=== PATIENT | male | born 1940 | race Caucasian/White ===

== ENCOUNTER 2016-09-20 10:11 | Outpatient (RCR) | payer BC ==
[~2016-09-20 10:11] MED LIST: AMIO200T50; AMLO10TA2 PO; AMLO5TAB2; ASP325T; ASP81CT; ASPI-983 PO; DILT120T11 PO; DLT120CCR; ENAL10TA; ENAL20TA PO; FLT05NA16; HYDR-3812 PO; HYDR-3876 PO; HYDR25TA4 PO; HYZAAR; INSU100V6 SQ; LEVO500T2 PO; LEVO75TA58; LEVO88TA54 PO; LEVOTHYROXINE; LOSA1TAB15; METF1000 PO; METF500T4 PO; METH1TAB59 PO; METO50TA7; MTF500T; NF-ALI300T; ONDA4TAB10 PO; PHEN-640 PO; POTA10TA10 PO; TAMS0.4C98 PO; TRIA10.8 NS; VALS320T14 PO; WRF5T
--- OUTSIDE RECORDS SUMMARY | 2016-09-20 10:17 | XMS REPORT | Continuity of Care Document ---
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 If you do not see the information that you expected, contact Release of Information in the Health Information Management department at [phone] for further assistance in locating additional records.[facility] Active Allergies and Adverse Reactions Allergen Noted Date Severity Reactions Comments Ampicillin 02/03/2010 Low ITCHING Levaquin 12/03/2015 Low SEE COMMENTS Muscle weakness and some swelling Pcn 10/23/2014 Medium RASH Current Medications Prescription Sig. Disp. Refills Start End Date Status Date levothyroxine (SYNTHROID) Take 88 mcg by mouth Active 88 mcg tablet daily. valsartan (DIOVAN) 320 mg Take 320 mg by mouth Active tablet daily. Coenzyme Q10 (CO Q-10) 10 Take 1 Cap by mouth Active mg cap daily. LEVOCARNITINE HCL Use 1 Tab as directed Active ([id number] MISC) daily. ARGININE (L-ARGININE) PO Take 1 Tab by mouth Active daily. TURMERIC (BULK) MISC Take 1 Tab by mouth Active daily. zinc sulfate 220 mg (50 Take 220 mg by mouth Active mg elemental zinc) daily. capsule triamcinolone (NASACORT) Apply 1 [place] to each Active 55 mcg nasal inhaler nostril as directed at bedtime as needed. ascorbic acid (VITAMIN-C) Take 500 mg by mouth Active 500 mg tablet daily. aspirin EC 81 mg tablet Take 162 mg by mouth Active every morning. fish oil /omega-3 fatty Take 1 Cap by mouth Active acids (SEA-OMEGA) daily. 340/1000 mg capsule metFORMIN (GLUCOPHAGE) Take 1 Tab by mouth twice 60 Tab 1 10/18/19 Active 1,000 mg tablet daily with meals. 16 fluticasone (FLONASE) 50 Apply 1 [place] to each Active mcg/actuation nasal spray nostril as directed daily as needed. Shake bottle gently before using. vitamins, multiple tablet Take 1 Tab by mouth Active daily. other medication Take 2 Doses by mouth Active daily. Medication Name & Strength: Herbal Superfood Engergizer Dose(how many): 2 capsules Frequency(how often): daily other medication Take 1 Dose by mouth Active daily. insulin glargine (LANTUS Inject 12 Units under the Active SOLOSTAR) 100 unit/mL (3 skin at bedtime daily. mL) injection PEN BERB ORTIZ/HERBAL COMPLEX Take 2 Tabs by mouth Active NO.18 (BERBERINE-HERBAL daily. COMB NO.18 PO) other medication Take by mouth daily. Active Medication Name & Strength: PGX Frequency(how often): daily other medication three times daily. Active Medication Name & Strength: Carb blockers Frequency(how often): before meals ALPHA LIPOIC ACID PO Take 1 Cap by mouth Active daily. other medication Take by mouth daily. Active Medication Name & Strength: Natokinase Frequency(how often): Daily CHROMIC CHLORIDE Take 1 Tab by mouth Active (CHROMIUM CHLORIDE PO) daily. INSULIN DETEMIR (LEVEMIR Inject 15 Units under the Active SC) skin. amLODIPine (NORVASC) 5 mg Take 1 Tab by mouth 90 Tab 3 09/01/19 Active tablet daily. 17 diltiazem CD (CARDIZEM Take 1 Cap by mouth 30 Cap 1 10/18/19 Discontin CD) 120 mg capsule daily. 16 17 ued oxyCODONE (ROXICODONE, Take 1-2 Tabs by mouth 40 Tab 0 07/08/20 Discontin OXY-IR) 5 mg tablet every 4 hours as needed 16 17 ued for Pain Earliest Fill Date: 07/08/16 tamsulosin (FLOMAX) 0.4 Take 1 Cap by mouth daily 90 Cap 0 07/08/20 09/01/19 Discontin mg capsule after breakfast. Do not 16 17 ued crush, chew or open capsules. Take 30 minutes following the same meal each day. senna (SENOKOT) 8.6 mg Take 2 Tabs by mouth 30 Tab 0 07/08/20 Discontin tablet twice daily. 16 17 ued Active Problems Problem Noted Date Incisional hernia 07/08/2016 Left inguinal hernia 07/08/2016 Ventral hernia without obstruction or gangrene 07/05/2016 Inguinal hernia of left side without obstruction or gangrene 07/05/2016 Incisional hernia, without obstruction or gangrene 06/07/2016 Unilateral inguinal hernia without obstruction or gangrene 06/07/2016 Pancreatitis, necrotizing 12/03/2015 Submucosal lesion of stomach 12/03/2015 Paresthesia of both legs 09/29/2015 Pleural effusion 09/29/2015 Obstructive sleep apnea 09/29/2015 Volume overload 09/29/2015 Colitis 09/29/2015 Nausea & vomiting 09/29/2015 Nephrolithiasis 09/29/2015 Hypophosphatemia 09/29/2015 Severe sepsis (HCC) 09/29/2015 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 to or causing fatigue, lack energy, etc.--02/19--pt to taper toprol to off and re-assess clinical status Tests ordered 03/03/2010 Overview: Normal LV function with EF 54% by rest echo and Cardiolite stress thallium. No initial ischemia by Cardiolite stress thallium 08/2007 Severe Sleep apnea, obstructive 03/03/2010 Overview: 01/2012 - continues on CPAP, he has used 99% of the time. Average pressure is 7.5. Plan to reevaluate in one year. (Dr. Artie Hart) FH: CAD (coronary artery disease) 03/03/2010 Hypothyroidism 02/03/2010 Overview: a. 10/2007: Currently on Hyzaar and Cardizem. Discussion for initiation of enalapril possibly per Dr. Andino. b. Vasotec increased to 10 mg b.i.d. for accelerated blood pressure (01/2008). Type II diabetes mellitus ([facility]) 02/03/2010 PAF (paroxysmal atrial fibrillation) ([facility]) 02/03/2010 Overview: Paroxysmal atrial fibrillation (PAFIB) - currently persistent. a. Per patient, dates back to 06/2007 although palpitations longstanding in past. b. 09/07/07: JIMMY-guided cardioversion with ERAF-early recurrent AFIB. Amiodarone initiated and repeat cardioversion with again ERAF within 12 hours. Amiodarone continued IV. Within 24 hours chemical conversion to NSR/sinus bradycardia. Discharged on amiodarone and Cardizem. Per report amiodarone 400mg b.i.d. for two weeks followed by 400mg q.d. c. Transthoracic echo: LA 4.7cm. JIMMY: "dilated LA. TSH 08/21 normal. d. Accelerated hypertension and possible sleep apnea precipitating/exacerbating AFIB. e. 10/16/07: EP consultation. Discussed therapeutic options including focal AFIB ablation. f. Amiodarone titrated to 600 mg a day. Patient converted within 24 hours (10/2007). Remained on 600 mg for 1-2 months and subsequently has been decreasing his own dose to 400-500 mg daily. g. Will decrease to 400 mg, followed by 200 mg over the next 2-4 weeks, monitoring for recurrent events. h. 10/20: Pt.had been having increased and recurrent AFIB and had told Dr. Andino he was considering going to [facility] for an AFIB RFA. Dr. Andino instead referred him to the [facility] i. 01/08/09: EP Consultation--Amiodarone decr. to 200mg M-F only and Toprol decr. to 1/2 tab or to 12.5 mg daily, and enalapril incr. to 20mg daily j. 02/17/09 - occasional skipped beats or palpitations. Patient does not feel he has had recurrent AFIB, continued therapy (but see below SMD). Hypertension 01/27/2010 Restless leg syndrome 12/13/2007 Most Recent Encounters Date Type Specialty Providers Description 09/12/2016 Telephone Cardiology Aline Correia LPN Event Monitor Questions 09/01/2016 Hospital Cardiology Javi More MD Encounter 09/01/2016 Office Visit Cardiology Javi More MD Atrial fibrillation - F/U 08/19/2016 Office Visit General Surgery Lisa Barrios, DO Post- operative state Siomara Hwang APRN-PULL UP HAND (Primary Dx) 07/22/2016 Office Visit General Surgery Lisa Barrios, DO Post- operative state (Primary Dx) 07/05/2016 Surgery Lisa Barrios, DO OPEN INCISIONAL HERNIA REPAIR WITH MESH, MESH REMOVAL 06/28/2016 Office Visit Cardiology Emory Whaley MD Pre-op Clearance - Hernia Repair- Scheduled for 07-05-16 06/24/2016 PAC Office Anesthesiology Lisa Barrios DO Pancreatitis, necrotizing Visit (Primary Dx); Encounter for blood typing; Pre-operative cardiovascular examination; Essential hypertension 06/24/2016 Anesthesia January Allen, GABRIELLE Event Immunizations Name Dates Previously Given Next Due Pneumococcal Vaccine 10/05/2015 (23-[place] Adult) Social History Tobacco Use Types Packs/Day Years Used Date Former Smoker Cigarettes, Cigars, Pipe Comments: quit at 26 yrs of age Alcohol Use Drinks/Week oz/Week Comments Yes Last Filed Vital Signs Vital Sign Reading Time Taken Blood Pressure 154/86 09/01/2016 11:41 AM CUSTOMER SERVICE ASSOCIATE Pulse 60 09/01/2016 11:41 AM CUSTOMER SERVICE ASSOCIATE Temperature 36.6 C (97.9 F) 07/22/2016 1:54 PM CUSTOMER SERVICE ASSOCIATE Respiratory Rate 18 07/22/2016 1:54 PM CUSTOMER SERVICE ASSOCIATE Height 1.753 m (5' 9") 09/01/2016 11:41 AM CUSTOMER SERVICE ASSOCIATE Weight 74.481 kg (164 lb 3.2 oz) 09/01/2016 11:41 AM CUSTOMER SERVICE ASSOCIATE Body Mass Index 24.24 09/01/2016 11:41 AM CUSTOMER SERVICE ASSOCIATE Oxygen Saturation 100% 07/22/2016 1:54 PM CUSTOMER SERVICE ASSOCIATE Plan of Care Date Type Specialty Providers Description 09/23/2016 Appointment General Surgery MertLisa rodríguezDO [address] [place] [address] [phone] (Fax) Health Maintenance Due Date Last Done Comments Physical (Comprehensive) 1947 Exam Pertussis Vaccine 1951 Tetanus Vaccine 1957 Dilated Eye Exam 1958 Foot Exam 1958 Microalbumin 1958 Shingles Vaccine 2000 Hba1c 03/28/2016 09/28/2015, 04/30/2012, 11/24/2011 Additional history exists Influenza Vaccine 04/14/2016 Prevnar/Pneumovax (#2) 10/05/2016 10/05/2015 Procedures from Last 3 Months Procedure Name Priority Date/Time Associated Diagnosis Comments PROCEDURES-SCAN 07/11/2016 Results for this 3:16 PM CUSTOMER SERVICE ASSOCIATE procedure are in the results section. PROCEDURES-SCAN 07/11/2016 Results for this 3:16 PM CUSTOMER SERVICE ASSOCIATE procedure are in the results section. PROCEDURES-SCAN 07/11/2016 Results for this 3:16 PM CUSTOMER SERVICE ASSOCIATE procedure are in the results section. OPEN LEFT INGUINAL HERNIA 07/05/2016 Incisional hernia REPAIR WITH MESH 11:55 AM CUSTOMER SERVICE ASSOCIATE Special Needs 06/07 PER CHANGE FORM, REMOVED "BILATERAL COMPONENT SEPARATION " FROM PROCEDURE - SANDRA BENDER ([id number]) OPEN INCISIONAL HERNIA 07/05/2016 Incisional hernia REPAIR WITH MESH, MESH 11:55 AM CUSTOMER SERVICE ASSOCIATE REMOVAL Special Needs 06/07 PER CHANGE FORM, REMOVED "BILATERAL COMPONENT SEPARATION " FROM PROCEDURE - SANDRA BENDER ([id number]) Results from Last 3 Months MAGNESIUM (09/01/2016 1:20 PM)Only the most recent of 3 results within the time period is included. Component Value Range Magnesium 2.3 1.6-2.6 mg/dL Specimen Blood BASIC METABOLIC PANEL (09/01/2016 1:20 PM)Only the most recent of 5 results within the time period is included. Component Value Range Sodium 138 137-147 MMOL/L Potassium 3.7 3.5-5.1 MMOL/L Chloride 101 98-110 MMOL/L CO2 31 (H) 21-30 MMOL/L Anion Gap 6 3-12 Glucose 185 (H) 70-100 MG/DL Blood Urea Nitrogen 21 7-25 MG/DL Creatinine 0.82 0.4-1.24 MG/DL Calcium 9.7 8.5-10.6 MG/DL eGFR Non >60Comment: >60 mL/min The eGFR is not validated for use in drug dosing adjustments. Continue to use estimated creatinine clearance per dosing reference text. Please contact the Clinical Pharmacist for questions. eGFR >60Comment: >60 mL/min The eGFR is not validated for use in drug dosing adjustments. Continue to use estimated creatinine clearance per dosing reference text. Please contact the Clinical Pharmacist for questions. Specimen Blood PROCEDURES-SCAN (07/11/2016 3:16 PM) Narrative Ordered by an unspecified provider. PROCEDURES-SCAN (07/11/2016 3:16 PM) Narrative Ordered by an unspecified provider. PROCEDURES-SCAN (07/11/2016 3:16 PM) Narrative Ordered by an unspecified provider. POC GLUCOSE (07/08/2016 12:09 PM)Only the most recent of 16 results within the time period is included. Component Value Range Glucose, POC 356 (H) 70-100 MG/DL PHOSPHORUS (07/07/2016 5:26 AM)Only the most recent of 2 results within the time period is included. Component Value Range Phosphorus 2.8 2.0-4.0 MG/DL Specimen Blood CBC (07/07/2016 5:26 AM)Only the most recent of 3 results within the time period is included. Component Value Range White Blood Cells 6.3 4.5-11.0 K/UL RBC 2.96 (L) 4.4-5.5 M/UL Hemoglobin 8.4 (L) 13.5-16.5 GM/DL Hematocrit 25.5 (L) 40-50 % MCV 85.9 80-100 FL MCH 28.3 26-34 PG MCHC 32.9 32.0-36.0 G/DL RDW 14.7 11-15 % Platelet Count 217 150-400 K/UL MPV 8.1 7-11 FL Specimen Blood SURGICAL PATHOLOGY (07/05/2016 8:11 AM) Component Value Range PATHOLOGY REPORT [facility] [email or web address] Pauline Cantor MD, PhD, Director of Anatomic Pathology Department of Pathology and Laboratory Medicine [address] [place] [id number] Surgical Pathology Office: [phone] SURGICAL PATHOLOGY REPORT NAME: MARTHA HARTLEY SURG PATH #: [id number] MR #: [id number] SPECIMEN CLASS: SR BILLING #: [id number] ALT ID #: LOCATION: DISCHARGED DATE OF PROCEDURE: 07/05/2016 AGE: 76 SEX: M DATE RECEIVED: 07/06/2016 : 1940 TIME RECEIVED: 08:11 PHYSICIAN: LISA BARRIOS DATE OF REPORT: 07/11/2016 COPY TO: DATE OF PRINTIN07/11/2016 ################################################## ###################### Final Diagnosis: A. Fibroadipose tissue, "cord lipoma", excision: Lipoma with granulomatous inflammation Attestation: By this signature, I attest that I have personally formulated the final interpretation expressed in this report and that the above diagnosis is based upon my examination of the slides and/or other material indicated in this report. +++Electronically Signed Out By+++ berna/07/06/2016 Interpreted by: David Paez MD, Attending Physician 07/11/2016 ################################################## ###################### Material Received: A: cord lipoma History: 76-year-old male with a clinical history of incisional hernia, left inguinal hernia. Gross Description: A. Received in formalin, labeled with the patient's name and "cord lipoma" is an 8.0 x 2.0 x 1.0 cm portion of yellow adipose tissue that is covered in part by pale-hughes membranous tissue. The specimen is serially sectioned to reveal a yellow, grossly unremarkable cut surface. Compliance Representative sections are submitted in cassette A1-A2. (nilson) nilson/07/06/2016 TYPE & SCREEN (NOT CROSSMATCH ELIGIBLE) (06/24/2016 3:01 PM) Component Value Range ABO/RH(D) A NEG Antibody Screen NEG Blood Component Type RED CELL GROUP Specimen Blood, venous - Blood
== END 2016-12-19 | disposition home or self-care (01) ==
LOC: CARD 10:11
PROVIDERS: ATTEND Internal Medicine Cardiovascular Disease
DX: I49.3 Ventricular premature depolarization (principal); I48.0 Paroxysmal atrial fibrillation; R00.2 Palpitations
CPT/HCPCS: 93225; 93226

== ENCOUNTER → 2016-12-28 | Outpatient (CLI) | payer MEDICARE, OTHER ==
[~2016-12-28] MED LIST changes: +CATHETER FLUSH 10 ML SYR IV PRN; +REGADENOSON 0.4 MG/5 ML SYR (LEXISCAN) IV ONE
[2016-12-28 12:54] VITALS: BP 143/81
[2016-12-28 13:06] VITALS: BP 134/72
[2016-12-28 13:08] VITALS: BP 135/72
--- NOTE | 2016-12-30 07:51 | STRESS TEST ---
DATE OF SERVICE: LEXISCAN MYOVIEW STRESS TEST REPORT REFERRING PHYSICIANS: Talat Ortiz M.D., and Javi More M.D. Baseline heart rate is 57, baseline blood pressure 143/81, baseline EKG is sinus rhythm with frequent atrial premature contractions. In summary, the patient was injected with 10.47 mCi of technetium-99 Myoview and the resting images were obtained. Then, the patient received 0.4 mg of Lexiscan followed by 30.1 mCi of technetium-99 Myoview. Throughout the test, there were no EKG changes. The resting and stress images were reviewed and compared in the short axis, horizontal long axis, and vertical long axis views. Review of the images showed diaphragmatic attenuation, affecting the quality of the images. There is mild decreased uptake in the mid to apical inferior wall with subtle reversibility. SSS is 3. SDS 1. TID value 1.11. On the gated images, the left ventricle appeared to be in normal size with normal contractility. Calculated ejection fraction 63%. CONCLUSION: 1. The patient tolerated Lexiscan well. 2. Diaphragmatic attenuation with typical male pattern. No significant ischemia was noted. 3. Normal left ventricular size with normal contractility. Calculated ejection fraction 63%. Job ID: [id number] DocumentID: [id number] Dictated Date: 12/28/2016 15:37:25 Data Processing Mechanic Date: 12/29/2016 07:25:53 Dictated By: IRIS ALFRED MD
== END ==
LOC: CARD 11:11
PROVIDERS: ATTEND Physician Assistant
DX: I10 Essential (primary) hypertension (principal); E78.2 Mixed hyperlipidemia; I48.0 Paroxysmal atrial fibrillation; G47.33 Obstructive sleep apnea (adult) (pediatric)
CPT/HCPCS: 78452; 93017

== ENCOUNTER → 2017-02-02 | Outpatient (CLI) | payer MEDICARE, OTHER ==
[~2017-02-02] MED LIST changes: +IOHEXOL 350 MG/ML 100 ML (OMNIPAQUE 350) VIAL IV ONE; +NS 100 ML (IVPB) BAG IV ONE; -REGADENOSON 0.4 MG/5 ML SYR (LEXISCAN) IV ONE
== END ==
DX: K85.91 Acute pancreatitis with uninfected necrosis, unspecified (principal); K59.00 Constipation, unspecified; I31.3 Pericardial effusion (noninflammatory)

== ENCOUNTER → 2017-03-27 | Outpatient (CLI) | payer MEDICARE, OTHER ==
[~2017-03-27] MED LIST changes: -CATHETER FLUSH 10 ML SYR IV PRN; -IOHEXOL 350 MG/ML 100 ML (OMNIPAQUE 350) VIAL IV ONE; -NS 100 ML (IVPB) BAG IV ONE
--- NOTE | 2017-03-27 12:34 | Diagnostic Imaging Report ---
PROCEDURE: MRI lumbar spine. TECHNIQUE: Multiplanar, multisequence MRI of the lumbar spine was performed without contrast. INDICATION: Back pain. 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 The degenerative changes do not seem as pronounced as on the prior exam. There is a disc bulge centrally which flattens the ventral aspect of the thecal sac and narrows the AP diameter to approximately 8.0 mm. On the prior exam, the AP diameter of the thecal sac was narrowed to approximately 4.5 mm. There is still narrowing of the neural foramen bilaterally at this level, particularly on the right. The lateral disc protrusion to the left at L4-5 seen previously is again evident and does not appear to have changed significantly. The disc compresses the left ventral aspect of the thecal sac and narrows the AP diameter of the thecal sac to approximately 7.8 mm. On the prior exam, the AP diameter of the thecal sac was narrowed to 7.4 mm. There is also mild narrowing the neural foramen on the right at this level. This finding is essentially no different. The prior study also revealed a lateral disc protrusion to the right at L5-S1. That finding is again evident and does not appear to have changed adversely. There is no significant narrowing of the neural foramen on the left at this level and there is no evidence for central stenosis at L5-S1. The remainder of the lumbar spine is stable as well. No new area of spinal stenosis or nerve root encroachment has developed. There is no abnormal signal arising from the cord or the vertebral bodies to indicate an acute abnormality. There is no sign of a paraspinal mass. IMPRESSION: 1. 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 There is still narrowing of the neural foramen bilaterally at this level. 2. The lateral disc protrusion to the left at L4-5 and to the right at L5-S1 do not appear to have changed significantly. 3. There is no new area of spinal stenosis or nerve root encroachment identified. 4. There is no sign of an acute bony abnormality or for a cord lesion. Dictated by: Dictated on workstation # [id number]
== END ==
LOC: RAD 10:19
PROVIDERS: ATTEND Anesthesiology Pain Medicine
DX: M51.26 Other intervertebral disc displacement, lumbar region (principal)
CPT/HCPCS: 72148

== ENCOUNTER → 2017-05-22 | Outpatient (CLI) | payer MEDICARE, OTHER ==
[~2017-05-22] MED LIST changes: +IOHEXOL 350 MG/ML 100 ML (OMNIPAQUE 350) VIAL IV ONE; +NS 100 ML (IVPB) BAG IV ONE
[2017-05-22 09:35] LABS: BLOOD UREA NITROGEN 27 MG/DL (7-18); BUN/CREATININE RATIO 31; CREATININE SERUM 0.88 MG/DL (0.60-1.30); GFR ESTIMATED > 60
--- NOTE | 2017-05-22 12:39 | Diagnostic Imaging Report ---
PROCEDURE: CT abdomen with and without contrast. TECHNIQUE: Multiple contiguous axial CT images of the abdomen were obtained prior to and after intravenous administration of iodinated contrast. INDICATION: Necrotizing pancreatitis followup. 100 mL of Omnipaque 350 is administered intravenously. FINDINGS: There is an 11.2 x 5.6 x 9.0 cm walled-off necrosis seen around the pancreas. The overall measurements are not significantly changed when compared to 02/02/2017. There is no internal air density or air-fluid level to suggest an abscess formation. There is abnormal morphology of the pancreatic parenchyma likely related to prior necrosis of most of the pancreatic head and significant portions of the pancreatic body and tail. There is minimal fatty stranding seen around the pancreas and in the small bowel mesentery. This is similar to 02/02/2017 exam with no definite active inflammation. There is no free peritoneal fluid seen. No pneumoperitoneum. The visualized portions of the lung bases appear unremarkable. The liver, the spleen, and the adrenal glands appear unremarkable. Cholecystectomy clips are seen. There is also suggestion of a suture material or calcification along the walled-off necrosis in the peripancreatic area anterior to the location of the pancreatic head. The kidneys have symmetric enhancement and contrast excretion. The abdominal aorta is normal in caliber. Atherosclerotic calcifications are seen. There is mild ectasia of the common iliac arteries bilaterally. There is evidence of prior ventral hernia repair with a mesh. No evidence of hernia recurrence. The osseous structures appear to demonstrate lower lumbar spine facet and disc degenerative changes. 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 Dictated by: Dictated on workstation # [id number]
== END ==
LOC: RAD 08:56
PROVIDERS: ATTEND Nurse Practitioner Adult Health
DX: K85.91 Acute pancreatitis with uninfected necrosis, unspecified (principal)
CPT/HCPCS: 36415; 74170; 82565; 84520

== ENCOUNTER 2018-04-20 15:03 | Outpatient (CLI) | payer MEDICARE, OTHER ==
[~2018-04-20] VITALS: Ht 175.3 cm; Wt 81.6 kg
[~2018-04-20 15:03] MED LIST changes: +ACHD5005 PO; -AMLO10TA2 PO; +AMLO10TA6 PO; -HYDR-3812 PO; -IOHEXOL 350 MG/ML 100 ML (OMNIPAQUE 350) VIAL IV ONE; +METF-397 PO; +METF-399 PO; -METF1000 PO; -METF500T4 PO; -NS 100 ML (IVPB) BAG IV ONE; -VALS320T14 PO; +VALS320T15 PO
[2018-04-20] MEDS ORDERED: INSU100I14 SQ (15:08)
[2018-04-20] MEDS ORDERED: LOSA100T8 PO (15:08)
[2018-04-20] MEDS ORDERED: ASPI-586 PO (15:08)
[2018-04-20] MEDS ORDERED: AMLO5TAB7 PO (15:08)
== END 2018-04-20 15:09 | disposition home or self-care (01) ==
LOC: PREOP 15:03
PROVIDERS: ATTEND Surgery
DX: Z01.818 Encounter for other preprocedural examination (principal)

== ENCOUNTER 2018-04-24 11:31 | Day surgery (SDC) | payer MEDICARE, OTHER ==
[~2018-04-24] VITALS: Ht 175.3 cm; Wt 81.6 kg
[~2018-04-24 11:31] MED LIST changes: +AMLO5TAB7 PO; +ASPI-586 PO; +INSU100I14 SQ; +LOSA100T8 PO
[2018-04-24 11:35] VITALS: BP 170/78
[2018-04-24] MEDS ORDERED: LACTATED RINGERS 1,000 ML IV STA (11:38)
--- OUTSIDE RECORDS SUMMARY | 2018-04-24 11:45 | XMS REPORT | Clinical Summary ---
Author Author [facility] Organization [facility] Address Unknown Phone Unavailable Care Team Providers Care Account Services Coordinator Name Role Phone Javi More MD Unavailable Claudia Shaikh RN Unavailable Unavailable Bety Lee MD Unavailable Talat Ortiz MD PCP Joaquin Mitchell DO Unavailable Artie Nettles MD Unavailable Unavailable Thompson Sher MD Unavailable Otilia Boateng RN Unavailable Unavailable Talat Becker MD Unavailable Melissa Elias Unavailable Unavailable Tracy Mckenzie CRNA Unavailable Ted Fox MD Unavailable Gabbie Bruno APRN Unavailable Michael Preciado MD Unavailable Source Comments Some departments are not documenting in the electronic medical record. If you do not see the information that you expected, contact Release of Information in the Health Information Management department at [phone] for further assistance in locating additional records.[facility] Allergies Active Allergy Reactions Severity Noted Date Comments Ampicillin ITCHING Low 02/03/2010 Levofloxacin SEE COMMENTS Low 12/03/2015 Muscle weakness and some swelling Penicillins RASH Medium 10/23/2014 Current Medications Prescription Sig. Disp. Refills Start End Date Status Date levothyroxine (SYNTHROID) Take 88 mcg by mouth Active 88 mcg tablet daily. valsartan (DIOVAN) 320 mg Take 320 mg by mouth Active tablet daily. zinc sulfate 220 mg (50 Take 220 mg by mouth Active mg elemental zinc) daily. capsuleIndications: PAF (paroxysmal atrial fibrillation) (HCC), Essential hypertension, Sinus node arrhythmia ascorbic acid (VITAMIN-C) Take 500 mg by [...] meals. 16 fluticasone (FLONASE) 50 Apply 1 [place] to each Active mcg/actuation nasal spray nostril as directed daily as needed. Shake bottle gently before using. vitamins, multiple tablet Take 1 Tab by mouth Active daily. other medication Take 1 Dose by mouth Active daily. insulin glargine (LANTUS Inject 12-13 Units under Active SOLOSTAR) 100 unit/mL (3 the skin at bedtime mL) injection PEN daily. BERB ORTIZ/HERBAL COMPLEX Take 1 tablet by mouth Active NO.18 (BERBERINE-HERBAL three times daily before COMB NO.18 PO) meals. other medication Take by mouth daily. Active Medication Name & Strength: PGX Frequency(how often): daily ALPHA LIPOIC ACID PO Take 1 Cap by mouth Active daily. insulin aspart (NOVOLOG Inject 5-6 Units under Active FLEXPEN) 100 unit/mL the skin three times injection PEN daily with meals. coenzyme Q10(+) 100 mg Take 100 mg by mouth Active cap daily. turmeric root extract 500 Take 500 mg by mouth Active mg cap daily. CREON 36,000-114,000- Take 1 capsule by mouth 06/05/20 Active 180,000 unit capsule three times daily with 17 meals. And snacks amLODIPine (NORVASC) 5 mg TAKE 1 TABLET BY MOUTH 90 tablet 3 12/16/19 Active tablet DAILY. 18 Active Problems Problem Noted Date Right inguinal hernia 07/28/2017 Overview: Added automatically from request for surgery [id number] Incisional hernia 07/08/2016 Left inguinal hernia 07/08/2016 [...] 09/28/2015 Abdominal bruit 01/14/2011 Sinus node arrhythmia 03/03/2010 Overview: mid 40s-50's--possibly contr. to or [...] blood pressure (01/2008). Type II diabetes mellitus ([facility]) 02/03/2010 PAF (paroxysmal atrial fibrillation) ([facility]) 02/03/2010 Overview: Paroxysmal atrial fibrillation [...] Dr. Andino he was considering going to [facility] for an AFIB RFA. Dr. Andino instead referred him to the [facility] i. 01/08/09: EP Consultation--Amiodarone decr. to 200mg M-F only and Toprol decr. to 1/2 tab or to 12.5 mg daily, and enalapril incr. to 20mg daily j. 02/17/09 - occasional skipped beats or palpitations. Patient does not feel he has had recurrent AFIB, continued therapy (but see below SMD). Hypertension 01/27/2010 Restless leg syndrome 12/13/2007 Immunizations Name Dates Previously Given Next Due Pneumococcal Vaccine 10/05/2015 (23-[place] Adult) Social History Tobacco Use Types Packs/Day Years Used Date Former Smoker Cigarettes 0.25 4 Smokeless Tobacco: Never Used Comments: quit at 26 yrs of age Alcohol Use Drinks/Week oz/Week Comments Yes 1 Glasses of 0.6 wine Sex Assigned at Date Recorded Not on file Last Filed Vital Signs Vital Sign Reading Time Taken Blood Pressure 150/70 11/03/2017 3:46 PM CDT Pulse 72 11/03/2017 3:46 PM CDT Temperature 37.2 C (99 F) 08/22/2017 2:00 PM EMERGENCY DEPARTMENT MANAGER Respiratory Rate 16 09/29/2017 3:16 PM EMERGENCY DEPARTMENT MANAGER Oxygen Saturation 100% 08/22/2017 2:00 PM EMERGENCY DEPARTMENT MANAGER Inhaled Oxygen - - Concentration Weight 80.3 kg (177 lb) 11/03/2017 3:46 PM CDT Height 175.3 cm (5' 9") 11/03/2017 3:46 PM CDT Body Mass Index 26.14 11/03/2017 3:46 PM CDT Plan of Treatment Health Maintenance Due Date Last Done Comments PHYSICAL (COMPREHENSIVE) 1947 EXAM PERTUSSIS VACCINE 1951 TETANUS VACCINE 1957 DILATED EYE EXAM 1958 FOOT EXAM 1958 SHINGLES RECOMBINANT 1990 VACCINE (1 of 2) HBA1C 03/28/2016 09/28/2015, 04/30/2012, 11/24/2011, Additional history exists PNEUMONIA (PCV13/PPSV23) 10/05/2016 10/05/2015 VACCINES (2 of 2 - PCV13) INFLUENZA VACCINE 05/14/2018 05/25/2006, 07/28/2005 Implants Implanted Type 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 Cable Splicing Technician Device Expiration Model / Identifier Date Serial / Lot Titanium Plates Apr In Clp Med Lg 10mm Pstl COVIDIEN: [id number] / Implanted: Qty: 1 on 10/11/2015 by SURGICAL NA / Artie Nettles MD DEVICES [id number] M[employer] Parietex 6cm Inguinal Left: COVIDIEN: 10/11/2020 [id number] / Plug Groin SURGICAL [id number] / Implanted: Qty: 1 on 07/05/2016 by DEVICES [id number] Louie Noland, DO Patch Surgical Self Expand Flexible Left: [employer] 03/14/2017 PVPM / Laminate Large Pore Groin PVPM / Implanted: Qty: 1 on 07/05/2016 by [id number] Louie Noland, DO [employer] 1.7x1.7in Self N/A: [employer] 01/11/2018 PVPS / Expanding Partially Absorbable Umbilical PVPS / Implanted: Qty: 1 on 07/05/2016 by [id number] Louie Noland, DO [employer] 1.7x1.7in Self Right: [employer] 04/13/2019 PVPS / Expanding Partially Absorbable - Abdomen N/A / Sn/A [id number] Implanted: Qty: 1 on 08/22/2017 by Louie Noland, DO [employer] Parietex 6cm Inguinal Right: COVIDIEN: 12/11/2021 [id number] / Plug - Sn/A Abdomen SURGICAL N/A / Implanted: Qty: 1 on 08/22/2017 by DEVICES [id number] Louie Noland, DO Results Not on filefrom Last 3 Months
--- OUTSIDE RECORDS SUMMARY | 2018-04-24 11:48 | XMS REPORT | Continuity of Care Document ---
Author Author [facility] Organization [facility] Address Unknown Phone Unavailable Allergies Active Description Code Type Severity Reaction Onset Reported/Identified Relationship to Patient Clinical Status Yes ampicillin [id number] Drug Allergy Unknown N/A 11/23/2015 Medications There is no data. Problems Date Dx Coded Attending Type Code Diagnosis Diagnosed By 01/27/2010 Ot 427.31 01/27/2010 Ot 427.81 01/27/2010 Ot 785.1 07/17/2014 PUSHPA RAMOS MD Ot 721.0 07/17/2014 PUSHPA RAMOS MD Ot 724.02 07/17/2014 PUSHPA RAMOS MD Ot 724.4 07/17/2014 IRIS ALFRED MD Ot 272.4 07/17/2014 IRIS ALFRED MD Ot 397.0 07/17/2014 IRIS ALFRED MD Ot 401.9 07/17/2014 IRIS ALFRED MD Ot 424.0 07/17/2014 IRIS ALFRED MD Ot 427.31 07/17/2014 IRIS ALFRED MD Ot 785.1 07/17/2014 PUSHPA RAMOS MD Ot 723.0 01/15/2015 Ot 427.31 01/15/2015 Ot 427.81 01/15/2015 Ot 785.1 01/15/2015 Ot 562.10 01/15/2015 Ot V76.51 01/15/2015 Ot 715.36 01/15/2015 Ot 959.7 01/15/2015 Ot E000.8 01/15/2015 Ot E009.9 01/15/2015 Ot E849.0 01/15/2015 PUSHPA RAMOS MD Ot 721.0 01/15/2015 PUSHPA RAMOS MD Ot 724.02 01/15/2015 PUSHPA RAMOS MD Ot 724.4 01/15/2015 IRIS ALFRED MD Ot 272.4 01/15/2015 IRIS ALFRED MD Ot 397.0 01/15/2015 TIMA WOOD, IRIS [place] Ot 401.9 01/15/2015 IRIS ALFRED MD Ot 424.0 01/15/2015 IRIS ALFRED MD Ot 427.31 01/15/2015 IRIS ALFRED MD Ot 785.1 01/15/2015 PUSHPA RAMOS MD Ot 723.0 01/15/2015 Ot 427.31 01/15/2015 Ot 427.81 01/15/2015 Ot 785.1 01/15/2015 Ot 562.10 01/15/2015 Ot V76.51 01/15/2015 Ot 715.36 01/15/2015 Ot 959.7 01/15/2015 Ot E000.8 01/15/2015 Ot E009.9 01/15/2015 Ot E849.0 01/15/2015 PUSHPA RAMOS MD Ot 721.0 01/15/2015 PUSHPA RAMOS MD Ot 724.02 01/15/2015 PUSHPA RAMOS MD Ot 724.4 01/15/2015 IRIS ALFRED MD Ot 272.4 01/15/2015 IRIS ALFRED MD Ot 397.0 01/15/2015 IRIS ALFRED MD Ot 401.9 01/15/2015 IRIS ALFRED MD Ot 424.0 01/15/2015 IRIS ALFRED MD Ot 427.31 01/15/2015 IRIS ALFRED MD Ot 785.1 01/15/2015 PUSHPA RAMOS MD Ot 723.0 01/30/2015 LOIS SPRINGER MD Ot 722.4 01/30/2015 LOIS SPRINGER MD Ot V67.09 06/10/2015 Ot 427.31 06/10/2015 Ot 427.81 06/10/2015 Ot 785.1 06/10/2015 Ot 562.10 06/10/2015 Ot V76.51 06/10/2015 Ot 715.36 06/10/2015 Ot 959.7 06/10/2015 Ot E000.8 06/10/2015 Ot E009.9 06/10/2015 Ot E849.0 06/10/2015 PUSHPA RAMOS MD Ot 721.0 06/10/2015 RICHARD WOOD, PUSHPA [place] Ot 724.02 06/10/2015 PUSHPA RAMOS MD Ot 724.4 06/10/2015 IRIS ALFRED MD Ot 272.4 06/10/2015 IRIS ALFRED MD Ot 397.0 06/10/2015 IRIS ALFRED MD Ot 401.9 06/10/2015 IRIS ALFRED MD Ot 424.0 06/10/2015 IRIS ALFRED MD Ot 427.31 06/10/2015 IRIS ALFRED MD Ot 785.1 06/10/2015 RICHARD WOOD, PUSHPA [place] Ot 723.0 06/10/2015 LOIS SPRINGER MD Ot 722.4 06/10/2015 LOIS SPRINGER MD Ot V67.09 08/28/2015 LOIS SPRINGER MD Ot 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, UNSPECIFIED 09/22/2015 Ot 562.10 09/22/2015 Ot V76.51 09/22/2015 Ot 715.36 09/22/2015 Ot 959.7 09/22/2015 Ot E000.8 09/22/2015 Ot E009.9 09/22/2015 Ot E849.0 09/22/2015 PUSHPA RAMOS MD Ot 721.0 09/22/2015 PUSHPA RAMOS MD Ot 724.02 09/22/2015 PUSHPA RAMOS MD Ot 724.4 09/22/2015 IRIS ALFRED MD Ot 272.4 09/22/2015 IRIS ALFRED MD Ot 397.0 09/22/2015 IRIS ALFRED MD Ot 401.9 09/22/2015 IRIS ALFRED MD Ot 424.0 09/22/2015 IRIS ALFRED MD Ot 427.31 09/22/2015 IRIS ALFRED MD Ot 785.1 09/22/2015 PSUHPA RAMOS MD Ot 723.0 09/22/2015 LOIS SPRINGER MD Ot 722.4 09/22/2015 LOIS SPRINGER MD Ot V67.09 09/24/2015 АЛЕКСАНДР REINOSO MD Ot E03.9 09/24/2015 АЛЕКСАНДР REINOSO MD Ot E11.9 09/24/2015 ARLETH WOOD, АЛЕКСАНДР Bloom Ot E78.5 09/24/2015 ARLETH WOOD, АЛЕКСАНДР Bloom Ot E86.0 09/24/2015 ARLETH WOOD, АЛЕКСАНДР Bloom Ot E87.5 09/24/2015 ARLETH WOOD, АЛЕКСАНДР Bloom Ot G47.33 09/24/2015 ARLETH WOOD, АЛЕКСАНДР Bloom Ot I10 09/24/2015 ARLETH WOOD, АЛЕКСАНДР Bloom Ot I48.0 09/24/2015 ARLETH WOOD, АЛЕКСАНДР Bloom Ot J44.9 09/24/2015 ARLETH WOOD, АЛЕКСАНДР Bloom Ot K52.9 09/24/2015 ARLETH WOOD, АЛЕКСАНДР Bloom Ot K85.9 09/24/2015 ARLETH WOOD, АЛЕКСАНДР Bloom Ot N17.9 09/24/2015 ARLETH WOOD, АЛЕКСАНДР Bloom Ot N20.0 09/24/2015 ARLETH WOOD, АЛЕКСАНДР Bloom Ot N40.0 09/24/2015 ARLETH WOOD, АЛЕКСАНДР Bloom Ot N52.9 09/24/2015 ARLETH WOOD, АЛЕКСАНДР Bloom Ot Z88.1 09/28/2015 ARLETH WOOD, АЛЕКСАНДР Bloom Ot E03.9 09/28/2015 ARLETH WOOD, АЛЕКСАНДР Bloom Ot E11.9 09/28/2015 ARLETH WOOD, АЛЕКСАНДР Bloom Ot E78.5 09/28/2015 ARLETH WOOD, АЛЕКСАНДР Bloom Ot E86.0 09/28/2015 ARLETH WOOD, АЛЕКСАНДР Bloom Ot E87.5 09/28/2015 ARLETH WOOD, АЛЕКСАНДР Bloom Ot G47.33 09/28/2015 ARLETH WOOD, АЛЕКСАНДР Bloom Ot I10 09/28/2015 ARLETH WOOD, АЛЕКСАНДР Bloom Ot I48.0 09/28/2015 ARLETH WOOD, АЛЕКСАНДР Bloom Ot J44.9 09/28/2015 ARLETH WOOD, АЛЕКСАНДР Bloom Ot K52.9 09/28/2015 ARLETH WOOD, АЛЕКСАНДР Bloom Ot K85.9 09/28/2015 ARLETH WOOD, АЛЕКСАНДР Bloom Ot N17.9 09/28/2015 ARLETH WOOD, АЛЕКСАНДР Bloom Ot N20.0 09/28/2015 ARLETH WOOD, АЛЕКСАНДР Bloom Ot N40.0 09/28/2015 ARLETH WOOD, АЛЕКСАНДР Bloom Ot N52.9 09/28/2015 ARLETH WOOD, АЛЕКСАНДР Bloom Ot Z88.1 09/28/2015 ARLETH WOOD, АЛЕКСАНДР Bloom Ot E03.9 09/28/2015 ARLETH WOOD, АЛЕКСАНДР Bloom Ot E11.9 09/28/2015 ARLETH WOOD, АЛЕКСАНДР Bloom Ot E78.5 09/28/2015 ARLETH WOOD, АЛЕКСАНДР Bloom Ot E86.0 09/28/2015 АЛЕКСАНДР REINOSO MD Ot E87.5 09/28/2015 АЛЕКСАНДР REINOSO MD Ot G47.33 09/28/2015 АЛЕКСАНДР REINOSO MD Ot I10 09/28/2015 ARLETH WOOD, АЛЕКСАНДР Bloom Ot I48.0 09/28/2015 АЛЕКСАНДР REINOSO MD Ot J44.9 09/28/2015 АЛЕКСАНДР REINOSO MD Ot K52.9 09/28/2015 АЛЕКСАНДР REINOSO MD Ot K85.9 09/28/2015 АЛЕКСАНДР REINOSO MD Ot N17.9 09/28/2015 АЛЕКСАНДР REINOSO MD Ot N20.0 09/28/2015 АЛЕКСАДНР REINOSO MD Ot N40.0 09/28/2015 АЛЕКСАНДР REINOSO MD Ot N52.9 09/28/2015 АЛЕКСАНДР REINOSO MD Ot Z88.1 09/28/2015 АЛЕКСАНДР REINOSO MD Ot E03.9 HYPOTHYROIDISM, UNSPECIFIED 09/28/2015 АЛЕКСАНДР REINOSO MD Ot E11.9 TYPE 2 DIABETES MELLITUS WITHOUT COMPLIC 09/28/2015 АЛЕКСАНДР REINOSO MD Ot E78.5 HYPERLIPIDEMIA, UNSPECIFIED 09/28/2015 АЛЕКСАНДР REINOSO MD Ot E86.0 DEHYDRATION 09/28/2015 АЛЕКСАНДР REINOSO MD Ot E87.5 HYPERKALEMIA 09/28/2015 АЛЕКСАНДР REINOSO MD Ot E87.6 HYPOKALEMIA 09/28/2015 АЛЕКСАНДР REINOSO MD Ot G47.33 OBSTRUCTIVE SLEEP APNEA (ADULT) (PEDIATR 09/28/2015 АЛЕКСАНДР REINOSO MD Ot I10 ESSENTIAL (PRIMARY) HYPERTENSION 09/28/2015 АЛЕКСАНДР REINOSO MD, Ot I48.0 PAROXYSMAL ATRIAL FIBRILLATION 09/28/2015 АЛЕКСАНДР REINOSO MD, Ot J44.9 CHRONIC OBSTRUCTIVE PULMONARY DISEASE, U 09/28/2015 АЛЕКСАНДР REINOSO MD, Ot K52.9 NONINFECTIVE GASTROENTERITIS AND COLITIS 09/28/2015 АЛЕКСАНДР REINOSO MD Ot K85.8 OTHER ACUTE PANCREATITIS 09/28/2015 АЛЕКСАНДР REINOSO MD Ot K85.9 09/28/2015 АЛЕКСАНДР REINOSO MD Ot N17.9 ACUTE KIDNEY FAILURE, UNSPECIFIED 09/28/2015 АЛЕКСАНДР REINOSO MD Ot N20.0 CALCULUS OF KIDNEY 09/28/2015 ЛАЕКСАНДР REINOSO MD Ot N39.0 URINARY TRACT INFECTION, SITE NOT SPECIF 09/28/2015 ARLETH MD, АЛЕКСАНДР D Ot N40.0 ENLARGED PROSTATE WITHOUT LOWER URINARY 09/28/2015 АЛЕКСАНДР REINOSO MD Ot N42.0 CALCULUS OF PROSTATE 09/28/2015 АЛЕКСАНДР REINOSO MD Ot 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, UNSPECIFIED 09/28/2015 АЛЕКСАНДР REINOSO MD Ot R54 AGE-RELATED PHYSICAL DEBILITY 09/28/2015 АЛЕКСАНДР REINOSO MD Ot Z87.891 PERSONAL HISTORY OF NICOTINE DEPENDENCE 09/28/2015 АЛЕКСАНДР REINOSO MD Ot Z88.1 ALLERGY STATUS TO OTHER ANTIBIOTIC AGENT 11/23/2015 EMRE WOOD, YOSELIN Carey Ot N20.0 CALCULUS OF KIDNEY 11/23/2015 EMRE WOOD, YOSELIN Carey Ot N42.0 CALCULUS OF PROSTATE 11/23/2015 EMRE WOOD, YOSELIN Carey Ot Z01.818 ENCOUNTER FOR OTHER PREPROCEDURAL EXAMIN 11/24/2015 YOSELIN ANDREA MD Ot N20.0 CALCULUS OF KIDNEY 11/24/2015 EMRE WOOD, YOSELIN Carey Ot N42.0 CALCULUS OF PROSTATE 11/24/2015 YOSELIN ANDREA MD Ot Z79.899 OTHER INTERMEDIATE (CURRENT) DRUG THERAPY 12/09/2015 YOSELIN ANDREA MD Ot N20.0 CALCULUS OF KIDNEY 12/16/2015 UZMA RICO APRN Ot K85.9 ACUTE PANCREATITIS, UNSPECIFIED 02/14/2016 CHASE BAUM Ot K85.9 ACUTE PANCREATITIS, UNSPECIFIED 03/14/2016 АЛЕКСАНДР REINOSO MD Ot K42.9 UMBILICAL HERNIA WITHOUT OBSTRUCTION OR 03/14/2016 АЛЕКСАНДР REINOSO MD Ot K85.9 ACUTE PANCREATITIS, UNSPECIFIED 03/14/2016 АЛЕКСАНДР REINOSO MD Ot N32.3 DIVERTICULUM OF BLADDER 09/14/2016 АЛЕКСАНДР REINOSO MD Ot K42.9 UMBILICAL HERNIA WITHOUT OBSTRUCTION OR 09/14/2016 АЛЕКСАНДР REINOSO MD Ot K85.9 ACUTE PANCREATITIS, UNSPECIFIED 09/14/2016 АЛЕКСАНДР REINOSO MD Ot N32.3 DIVERTICULUM OF BLADDER 09/15/2016 Ot 715.36 LOC OSTEOARTH NOS-L/LEG 09/15/2016 Ot 959.7 LOWER LEG INJURY NOS 09/15/2016 Ot E000.8 OTHER EXTERNAL CAUSE STATUS 09/15/2016 Ot E009.9 OTHER ACTIVITY INVOLVING CARDIORESPIRATO 09/15/2016 Ot E849.0 ACCIDENT IN HOME 09/15/2016 PUSHPA RAMOS MD Ot 721.0 CERVICAL SPONDYLOSIS 09/15/2016 PUSHPA RAMOS MD Ot 724.02 SPINAL STENOSIS, LUMBAR REG, W/OUT NEURO 09/15/2016 PUSHPA RAMOS MD Ot 724.4 LUMBOSACRAL NEURITIS NOS 09/15/2016 IRIS ALFRED MD Ot 272.4 HYPERLIPIDEMIA NEC/NOS 09/15/2016 IRIS ALFRED MD Ot 397.0 TRICUSPID VALVE DISEASE 09/15/2016 IRIS ALFRED MD Ot 401.9 HYPERTENSION NOS 09/15/2016 IRIS ALFRED MD Ot 424.0 MITRAL VALVE DISORDER 09/15/2016 IRIS ALFRED MD Ot 427.31 ATRIAL FIBRILLATION 09/15/2016 IRIS ALFRED MD Ot 785.1 PALPITATIONS 09/15/2016 PUSHPA RAMOS MD Ot 723.0 CERVICAL SPINAL STENOSIS 09/15/2016 LOIS SPRINGER MD Ot 722.4 CERVICAL DISC DEGEN 09/15/2016 LIOS SPRINGER MD Ot V67.09 SURGERY FOLLOW-UP, OTHER SURGERY 09/15/2016 АЛЕКСАНДР REINOSO MD Ot R10.9 UNSPECIFIED ABDOMINAL PAIN 09/15/2016 АЛЕКСАНДР REINOSO MD Ot K42.9 UMBILICAL HERNIA WITHOUT OBSTRUCTION OR 09/15/2016 АЛЕКСАНДР REINOSO MD Ot K63.9 DISEASE OF INTESTINE, UNSPECIFIED 09/15/2016 АЛЕКСАНДР REINOSO MD Ot K80.20 CALCULUS OF GALLBLADDER W/O CHOLECYSTITI 09/15/2016 АЛЕКСАНДР REINOSO MD Ot K82.8 OTHER SPECIFIED DISEASES OF GALLBLADDER 09/15/2016 АЛЕКСАНДР REINOSO MD Ot N20.0 CALCULUS OF KIDNEY 09/15/2016 АЛЕКСАНДР REINOSO MD Ot N42.0 CALCULUS OF PROSTATE 09/15/2016 YOSELIN ANDREA MD Ot N20.0 CALCULUS OF KIDNEY 09/15/2016 UZMA RICO APRN Ot K85.9 ACUTE PANCREATITIS, UNSPECIFIED 09/15/2016 YOSELIN ANDREA MD Ot N20.0 CALCULUS OF KIDNEY 09/15/2016 АЛЕКСАНДР REINOSO MD Ot K42.9 UMBILICAL HERNIA WITHOUT OBSTRUCTION OR 09/15/2016 АЛЕКСАНДР REINOSO MD Ot K85.9 ACUTE PANCREATITIS, UNSPECIFIED 09/15/2016 АЛЕКСАНДР REINOSO MD Ot N32.3 DIVERTICULUM OF BLADDER 09/15/2016 CHASE BAUM Ot K85.9 ACUTE PANCREATITIS, UNSPECIFIED 09/20/2016 Ot 715.36 LOC OSTEOARTH NOS-L/LEG 09/20/2016 Ot 959.7 LOWER LEG INJURY NOS 09/20/2016 Ot E000.8 OTHER EXTERNAL CAUSE STATUS 09/20/2016 Ot E009.9 OTHER ACTIVITY INVOLVING CARDIORESPIRATO 09/20/2016 Ot E849.0 ACCIDENT IN HOME 09/20/2016 RICHARD WOOD, PUSHPA [place] Ot 721.0 CERVICAL SPONDYLOSIS 09/20/2016 RICHARD WOOD, PUSHPA [place] Ot 724.02 SPINAL STENOSIS, LUMBAR REG, W/OUT NEURO 09/20/2016 PUSHPA RAMOS MD Ot 724.4 LUMBOSACRAL NEURITIS NOS 09/20/2016 IRIS ALFRED MD Ot 272.4 HYPERLIPIDEMIA NEC/NOS 09/20/2016 IRIS ALFRED MD Ot 397.0 TRICUSPID VALVE DISEASE 09/20/2016 IRIS ALFRED MD Ot 401.9 HYPERTENSION NOS 09/20/2016 IRIS ALFRED MD Ot 424.0 MITRAL VALVE DISORDER 09/20/2016 IRIS ALFRED MD Ot 427.31 ATRIAL FIBRILLATION 09/20/2016 IRIS ALFRED MD Ot 785.1 PALPITATIONS 09/20/2016 PUSHPA RAMOS MD Ot 723.0 CERVICAL SPINAL STENOSIS 09/20/2016 LOIS SPRINGER MD Ot 722.4 CERVICAL DISC DEGEN 09/20/2016 LOIS SPRINGER MD Ot V67.09 SURGERY FOLLOW-UP, OTHER SURGERY 09/20/2016 АЛЕКСАНДР REINOSO MD Ot R10.9 UNSPECIFIED ABDOMINAL PAIN 09/20/2016 АЛЕКСАНДР REINOSO MD Ot K42.9 UMBILICAL HERNIA WITHOUT OBSTRUCTION OR 09/20/2016 АЛЕКСАНДР REINOSO MD Ot K63.9 DISEASE OF INTESTINE, UNSPECIFIED 09/20/2016 АЛЕКСАНДР REINOSO MD Ot K80.20 CALCULUS OF GALLBLADDER W/O CHOLECYSTITI 09/20/2016 АЛЕКСАНДР REINOSO MD Ot K82.8 OTHER SPECIFIED DISEASES OF GALLBLADDER 09/20/2016 АЛЕКСАНДР REINOSO MD Ot N20.0 CALCULUS OF KIDNEY 09/20/2016 АЛЕКСАНДР REINOSO MD Ot N42.0 CALCULUS OF PROSTATE 09/20/2016 EMRE WOOD, YOSELIN Carey Ot N20.0 CALCULUS OF KIDNEY 09/20/2016 UZMA RICO APRN Ot K85.9 ACUTE PANCREATITIS, UNSPECIFIED 09/20/2016 EMRE WOOD, YOSELIN Carey Ot N20.0 CALCULUS OF KIDNEY 09/20/2016 АЛЕКСАНДР REINOSO MD Ot K42.9 UMBILICAL HERNIA WITHOUT OBSTRUCTION OR 09/20/2016 АЛЕКСАНДР REINOSO MD Ot K85.9 ACUTE PANCREATITIS, UNSPECIFIED 09/20/2016 АЛЕКСАНДР REINOSO MD Ot N32.3 DIVERTICULUM OF BLADDER 09/20/2016 CHASE BAUM Ot K85.9 ACUTE PANCREATITIS, UNSPECIFIED 09/21/2016 IRIS ALFRED MD J Ot I48.0 PAROXYSMAL ATRIAL FIBRILLATION 09/21/2016 TIMA WOOD, IRIS J Ot I49.3 VENTRICULAR PREMATURE DEPOLARIZATION 09/21/2016 IRIS ALFRED MD J Ot R00.2 PALPITATIONS 09/21/2016 TIMA WOOD, IRIS J Ot I48.0 PAROXYSMAL ATRIAL FIBRILLATION 09/21/2016 TIMA WOOD, IRIS J Ot I49.3 VENTRICULAR PREMATURE DEPOLARIZATION 09/21/2016 TIMA WOOD, IRIS J Ot R00.2 PALPITATIONS 10/11/2016 АЛЕКСАНДР REINOSO MD Ot K42.9 UMBILICAL HERNIA WITHOUT OBSTRUCTION OR 10/11/2016 АЛЕКСАНДР REINOSO MD Ot K85.9 ACUTE PANCREATITIS, UNSPECIFIED 10/11/2016 АЛЕКСАНДР REINOSO MD Ot N32.3 DIVERTICULUM OF BLADDER 10/27/2016 IRIS ALFRED MD J Ot I48.0 PAROXYSMAL ATRIAL FIBRILLATION 10/27/2016 IRIS ALFRED MD J Ot I49.3 VENTRICULAR PREMATURE DEPOLARIZATION 10/27/2016 IRIS ALFRED MD J Ot R00.2 PALPITATIONS 11/10/2016 АЛЕКСАНДР REINOSO MD Ot K42.9 UMBILICAL HERNIA WITHOUT OBSTRUCTION OR 11/10/2016 АЛЕКСАНДР REINOSO MD Ot K85.9 ACUTE PANCREATITIS, UNSPECIFIED 11/10/2016 АЛЕКСАНДР REINOSO MD Ot N32.3 DIVERTICULUM OF BLADDER 11/29/2016 АЛЕКСАНДР REINOSO MD Ot K42.9 UMBILICAL HERNIA WITHOUT OBSTRUCTION OR 11/29/2016 АЛЕКСАНДР REINOSO MD Ot K85.9 ACUTE PANCREATITIS, UNSPECIFIED 11/29/2016 АЛЕКСАНДР REINOSO MD Ot N32.3 DIVERTICULUM OF BLADDER 12/02/2016 АЛЕКСАНДР REINOSO MD Ot K42.9 UMBILICAL HERNIA WITHOUT OBSTRUCTION OR 12/02/2016 АЛЕКСАНДР REINOSO MD Ot K85.9 ACUTE PANCREATITIS, UNSPECIFIED 12/02/2016 АЛЕКСАНДР REINOSO MD Ot N32.3 DIVERTICULUM OF BLADDER 12/02/2016 АЛЕКСАНДР REINOSO MD Ot K42.9 UMBILICAL HERNIA WITHOUT OBSTRUCTION OR 12/02/2016 АЛЕКСАНДР REINOSO MD Ot K85.9 ACUTE PANCREATITIS, UNSPECIFIED 12/02/2016 АЛЕКСАНДР REINOSO MD, Ot N32.3 DIVERTICULUM OF BLADDER 12/19/2016 TIMA WOOD, IRIS [place] Ot I48.0 PAROXYSMAL ATRIAL FIBRILLATION 12/19/2016 TIMA WOOD, IRIS J Ot I49.3 VENTRICULAR PREMATURE DEPOLARIZATION 12/19/2016 TIMA WOOD, IRIS J Ot R00.2 PALPITATIONS 01/27/2017 PENNY PIKE LIV K Ot E78.2 MIXED HYPERLIPIDEMIA 01/27/2017 PENNY PIKE LIV K Ot G47.33 OBSTRUCTIVE SLEEP APNEA (ADULT) (PEDIATR 01/27/2017 PENNY PIKE LIV K Ot I10 ESSENTIAL (PRIMARY) HYPERTENSION 01/27/2017 PENNY PIKE LIV K Ot I48.0 PAROXYSMAL ATRIAL FIBRILLATION 01/30/2017 PENNY PIKE LIV K Ot E78.2 MIXED HYPERLIPIDEMIA 01/30/2017 PENNY PIKE, LIV K Ot G47.33 OBSTRUCTIVE SLEEP APNEA (ADULT) (PEDIATR 01/30/2017 PENNY PIKE LIV K Ot I10 ESSENTIAL (PRIMARY) HYPERTENSION 01/30/2017 PRIYANKA-EVELIO PIKE LIV K Ot I48.0 PAROXYSMAL ATRIAL FIBRILLATION 01/30/2017 АЛЕКСАНДР REINOSO MD Ot K42.9 UMBILICAL HERNIA WITHOUT OBSTRUCTION OR 01/30/2017 АЛЕКСАНДР REINOSO MD Ot K85.9 ACUTE PANCREATITIS, UNSPECIFIED 01/30/2017 АЛЕКСАНДР REINOSO MD Ot N32.3 DIVERTICULUM OF BLADDER 01/30/2017 PENNY PIKE LIV K Ot E78.2 MIXED HYPERLIPIDEMIA 01/30/2017 PENNY PIKE LIV K Ot G47.33 OBSTRUCTIVE SLEEP APNEA (ADULT) (PEDIATR 01/30/2017 LIV CHIN Ot I10 ESSENTIAL (PRIMARY) HYPERTENSION 01/30/2017 LIV CHIN Ot I48.0 PAROXYSMAL ATRIAL FIBRILLATION 03/06/2017 DEMOND-VAIL, UZMA Montgomery FLUE TILE PRESS OPERATOR Ot I31.3 PERICARDIAL EFFUSION (NONINFLAMMATORY) 03/06/2017 DEMOND-VAIL, UZMA Montgomery FLUE TILE PRESS OPERATOR Ot K59.00 CONSTIPATION, UNSPECIFIED 03/06/2017 DEMOND-VAIL, UZMA M FLUE TILE PRESS OPERATOR Ot K85.91 ACUTE PANCREATITIS WITH UNINFECTED NECRO 03/22/2017 DEMOND-VAIL, UZMA Montgomery FLUE TILE PRESS OPERATOR Ot I31.3 PERICARDIAL EFFUSION (NONINFLAMMATORY) 03/22/2017 DEMOND-VAIL, UZMA Montgomery FLUE TILE PRESS OPERATOR Ot K59.00 CONSTIPATION, UNSPECIFIED 03/22/2017 DEMOND-VAIL, UZMA Valentina FLUE TILE PRESS OPERATOR Ot K85.91 ACUTE PANCREATITIS WITH UNINFECTED NECRO 04/19/2017 ADINA WOOD, MARYANN Rai Ot M51.26 OTHER INTERVERTEBRAL DISC DISPLACEMENT, 05/23/2017 DEMOND-VAIL, UZMA Valentina FLUE TILE PRESS OPERATOR Ot K85.91 ACUTE PANCREATITIS WITH UNINFECTED NECRO 05/23/2017 LIV CHIN Ot E78.2 MIXED HYPERLIPIDEMIA 05/23/2017 LIV CHIN Ot G47.33 OBSTRUCTIVE SLEEP APNEA (ADULT) (PEDIATR 05/23/2017 LIV CHIN Ot I10 ESSENTIAL (PRIMARY) HYPERTENSION 05/23/2017 LIV CHIN Ot I48.0 PAROXYSMAL ATRIAL FIBRILLATION 06/13/2017 DEMOND-VAIL, UZMA Montgomery FLUE TILE PRESS OPERATOR Ot K85.91 ACUTE PANCREATITIS WITH UNINFECTED NECRO Procedures Code Description Performed By Performed On [id number] INSPECTION OF BLADDER, ENDO 09/28/2015 Results Test Result Range [id number] - 05/22/17 09:08 Serum or plasma urea nitrogen measurement (mass/volume) 27 mg/dL 7-18 Serum or plasma creatinine measurement (mass/volume) 0.88 mg/dL 0.60-1.30 Serum or plasma urea nitrogen/creatinine mass ratio 31 NRG Serum or plasma creatinine measurement with calculation of estimated glomerular filtration rate > NRG Encounters ACCT No. Visit Date/Time Discharge Status Pt. Type Provider Facility Loc./Unit Complaint [id number] 05/22/2017 08:56:00 05/22/2017 23:59:59 CLS Outpatient UZMA RICO APRN [facility] RAD NECROTIZING PANCREATITIS K85.91 [id number] 03/27/2017 10:19:00 03/27/2017 23:59:59 CLS Outpatient MARYANN HOLDEN MD [facility] RAD M54.16 [id number] 02/02/2017 09:56:00 02/02/2017 23:59:59 CLS Outpatient UZMA RICO APRN [facility] RAD NECROTIZING PANCREATITIS K85.91 [id number] 12/28/2016 11:11:00 12/28/2016 23:59:59 CLS Outpatient LIV CHIN [facility] CARD HTN, HYPERLIPIDEMIA,WONG,PAF [id number] 12/20/2016 10:00:00 12/20/2016 23:59:59 CLS Preadmit IRIS ALFRED MD [facility] CARD PALPITATIONS,FREQUENT PVCS,PAF [id number] 09/20/2016 10:11:00 12/19/2016 00:01:00 DIS Outpatient IRIS ALFRED MD [facility] CARD PALPITATIONS,FREQUENT PVCS,PAF [id number] 03/10/2016 12:05:00 03/10/2016 23:59:59 CLS Outpatient АЛЕКСАНДР REINOSO MD [facility] RAD NECROTIZING PANCREATITIS [id number] 02/15/2016 00:09:00 02/15/2016 23:59:59 CLS Preadmit CHASE BAUM [facility] ONC [id number] 11/16/2015 15:02:00 02/14/2016 00:01:00 DIS Outpatient CHASE BAUM [facility] ONC [id number] 12/08/2015 12:06:00 12/08/2015 23:59:59 CLS Outpatient YOSELIN ANDREA MD [facility] RAD RENAL STONE [id number] 12/07/2015 14:42:00 12/07/2015 23:59:59 CLS Outpatient UZMA RICO APRN [facility] RAD NECROTIZING PANCREATITIS [id number] 11/24/2015 10:01:00 11/24/2015 16:33:00 DIS Outpatient YOSELIN ANDREA MD [facility] SDC STONE [id number] 11/23/2015 05:36:00 11/23/2015 09:51:00 DIS Outpatient YOSELIN ANDREA MD [facility] PREOP STONE [id number] 11/19/2015 14:27:00 11/19/2015 23:59:59 CLS Outpatient YOSELIN ANDREA MD [facility] RAD STONE [id number] 09/22/2015 13:19:00 09/28/2015 21:05:00 DIS Inpatient АЛЕКСАНДР REINOSO MD [facility] 4TH PANCREATITIS [id number] 09/22/2015 10:55:00 09/22/2015 23:59:59 CLS Outpatient АЛЕКСАНДР REINOSO MD [facility] RAD ABDOMINAL PAIN,KIDNEY STONE [id number] 09/21/2015 16:37:00 09/21/2015 23:59:59 CLS Outpatient АЛЕКСАНДР REINOSO MD [facility] RAD ABDOMINAL PAIN [id number] 08/28/2015 12:56:00 08/28/2015 16:03:00 DIS Outpatient LOIS SPRINGER MD [facility] REHAB CERVICAL MYELOPATHY [id number] 01/15/2015 15:21:00 01/15/2015 23:59:59 CLS Outpatient LOIS SPRINGRE MD [facility] RAD POST SURGICAL SURGERY [id number] 06/12/2014 15:54:00 06/12/2014 23:59:59 CLS Outpatient PUSHPA RAMOS MD [facility] RAD RADICULOPATHY,STENOSIS [id number] 05/30/2014 13:45:00 05/30/2014 23:59:59 CLS Outpatient IRIS ALFRED MD [facility] CARD HTN,HLP,PALPITATIONS, PAF [id number] 05/26/2014 10:57:00 05/26/2014 23:59:59 CLS Outpatient PUSHPA RAMOS MD [facility] RAD LUMBAR RADICULOPATHY, CERVICAL DDD [id number] 04/24/2018 11:45:00 PEN Preadmit DK BOSTON DO [facility] ENDO SCREENING [id number] 01/30/2017 16:25:00 Document Registration [id number] 05/01/2012 13:24:00 Document Registration [id number] 03/24/2011 06:02:00 Document Registration [id number] 01/26/2010 11:43:00 Document Registration [id number] 01/04/2010 10:03:00 Document Registration [email or web address] 01/16/2015 05:29:54 ACT Document Registration
[2018-04-24] MEDS ORDERED: PROPOFOL INJECTION 50 ML IV ONE (12:23)
--- NOTE | 2018-04-24 13:10 | Progress Note-Pre Operative ---
Pre-Operative Progress Note H&P Reviewed The H&P was reviewed, patient examined and no changes noted. Date Seen by Provider: Apr 24, 2018 Time Seen by Provider: 13:10 Date H&P Reviewed: Apr 24, 2018 Time H&P Reviewed: 13:10 Pre-Operative Diagnosis: screening colonoscopy DK BOSTON DO Apr 24, 2018 13:10
--- NOTE | 2018-04-24 13:58 | Progress Note-Post Operative ---
Post-Operative Progess Note Surgeon (s)/Charcoal Kiln Burner (s) Surgeon DK BOSTON DO Charcoal Kiln Burner: na Pre-Operative Diagnosis screening colonoscopy Post-Operative Diagnosis incomplete colonoscopy due to poor prep Procedure & Operative Findings Date of Procedure 04/24/18 Procedure Performed/Findings flex sig, incomplete colonoscopy Anesthesia Type per trench shovel operator Estimated Blood Loss Estimated blood loss (mL): na Specimens/Packing Specimens Removed none DK BOSTON DO Apr 24, 2018 13:58
[2018-04-24 14:00] VITALS: BP 156/71
--- NOTE | 2018-04-24 14:00 | Discharge Inst-Simple/Standard ---
Discharge Inst-Standard Patient Instructions/Follow Up Plan of Care/Instructions/FU: Stay on a clear liquid diet. Repeat prep as you did yesterday (Miralax and Gatorade mixture). Then nothing to drink after midnight. You will have your scope repeated in the morning. Activity as Tolerated: Yes Discharge Diet: Liquid Diet (clear) DK BOSTON DO Apr 24, 2018 14:00
--- NOTE | 2018-04-24 14:22 | Anesthesia-General Post-Op ---
MAC Patient Condition Mental Status/LOC: Same as Preop Cardiovascular: Satisfactory Nausea/Vomiting: Absent Respiratory: Satisfactory Pain: Controlled Complications: Absent Post Op Complications Complications None Follow Up Care/Instructions Patient Instructions None needed. Anesthesiology Discharge Order Discharge Order Patient is doing well, no complaints, stable vital signs, no apparent adverse anesthesia problems. No complications reported per nursing. MACY HIGGINS CRNA Apr 24, 2018 14:21
[2018-04-24 14:30] VITALS: BP 160/74
[2018-04-24 14:50] VITALS: BP 160/74
--- NOTE | 2018-04-24 18:19 | OPERATIVE REPORT ---
DATE OF SERVICE: 04/24/2018 PREOPERATIVE DIAGNOSIS: Screening colonoscopy. POSTOPERATIVE DIAGNOSIS: Poor prep and complete colonoscopy. PROCEDURE: Flexible sigmoidoscopy, incomplete colonoscopy due to poor prep. SURGEON: Dk Seaman DO ANESTHESIA: Per SOLAR LAB TECHNICIAN. ESTIMATED BLOOD LOSS: None. COMPLICATIONS: None. INDICATIONS: The patient is a 78-year-old male for screening colonoscopy. He understands risks and benefits of procedure and wished to proceed with procedure. Consent was signed on the chart. DESCRIPTION OF PROCEDURE: The patient was taken to the endoscopy suite, placed in left lateral recumbent position. Timeout was performed. Digital rectal exam was performed. There were no palpable polyps, mass or ulcerations. The scope was inserted in the rectum, which was encountered by a lot of sludge appearing stool. This was then started to be irrigated and suctioned. Scope was continued to be advanced from the rectum up into the sigmoid colon where discontinued to being encountered by a significant amount of stool. Scope was continued to be advanced to irrigate and suctioned and was still had significant stool burden. At this point, it was difficult to visualize. Therefore, it was decided to abort the colonoscopy at this time due to concern of poor visualization. Scope was then slowly retracted back. Irrigation and suctioning. There were no polyps, mass or ulcerations seen in the sigmoid colon or rectum of any of the mucosa that was able to be visualized. Scope was slowly retracted and completely removed. The patient tolerated well without any complications. RECOMMENDATIONS: The patient will be maintained on a clear liquid diet and will do second prep today and we will plan on repeating tomorrow morning. Job ID: [id number] DocumentID: [id number] Dictated Date: 04/24/2018 13:56:33 Letterset Press Set Up Operator Date: 04/24/2018 18:18:13 Dictated By: DK SEAMAN DO
== END 2018-04-24 14:50 | disposition home or self-care (01) ==
LOC: ENDO 11:31
PROVIDERS: ATTEND Surgery
DX: Z12.11 Encounter for screening for malignant neoplasm of colon (principal); Z53.8 Procedure and treatment not carried out for other reasons; I10 Essential (primary) hypertension; E11.42 Type 2 diabetes mellitus with diabetic polyneuropathy; I48.91 Unspecified atrial fibrillation; G47.33 Obstructive sleep apnea (adult) (pediatric); Z87.891 Personal history of nicotine dependence; Z79.82 Long term (current) use of aspirin; Z79.4 Long term (current) use of insulin
CPT/HCPCS: 82962

== ENCOUNTER 2018-04-25 07:02 | Day surgery (SDC) | payer MEDICARE, OTHER ==
[~2018-04-25] VITALS: Ht 175.3 cm; Wt 81.6 kg
[2018-04-25] MEDS ORDERED: LACTATED RINGERS 1,000 ML IV STA (07:11)
[2018-04-25] MEDS ORDERED: LIDOCAINE PF 2% 2 ML (XYLOCAINE) VIAL ONE (07:29)
[2018-04-25] MEDS ORDERED: proPOfol 200 MG/20 ML (DIPRIVAN) VIAL IV ONE ×3 (07:29→08:37)
[2018-04-25 07:36] VITALS: BP 148/73
--- NOTE | 2018-04-25 07:50 | Progress Note-Pre Operative ---
Pre-Operative Progress Note H&P Reviewed The H&P was reviewed, patient examined and no changes noted. Date Seen by Provider: Apr 25, 2018 Time Seen by Provider: 07:47 Date H&P Reviewed: Apr 25, 2018 Time H&P Reviewed: 07:48 Pre-Operative Diagnosis: screening colonoscopy DK BOSTON DO Apr 25, 2018 07:50
[2018-04-25 09:10] VITALS: BP 137/66
[2018-04-25 09:40] VITALS: BP 163/84
--- NOTE | 2018-04-25 14:07 | Anesthesia-General Post-Op ---
MAC Patient Condition Mental Status/LOC: Same as Preop Cardiovascular: Satisfactory Nausea/Vomiting: Absent Respiratory: Satisfactory Pain: Controlled Complications: Absent Post Op Complications Complications None Follow Up Care/Instructions Patient Instructions None needed. Anesthesiology Discharge Order Discharge Order Patient is doing well, no complaints, stable vital signs, no apparent adverse anesthesia problems. No complications reported per nursing. ANNA HAYWARD CRNA Apr 25, 2018 14:07
--- NOTE | 2018-04-25 16:53 | Progress Note-Post Operative ---
Post-Operative Progess Note Surgeon (s)/Yarn Carrier (s) Surgeon DK BOSTON DO Yarn Carrier: na Pre-Operative Diagnosis screening colonoscopy Post-Operative Diagnosis normal colon Procedure & Operative Findings Date of Procedure 04/25/18 Procedure Performed/Findings colonoscopy Anesthesia Type per nitroglycerin distributor Estimated Blood Loss Estimated blood loss (mL): none Specimens/Packing Specimens Removed none DK BOSTON DO Apr 25, 2018 16:53
--- NOTE | 2018-04-25 22:28 | OPERATIVE REPORT ---
DATE OF SERVICE: 04/25/2018 PREOPERATIVE DIAGNOSIS: Screening colonoscopy. POSTOPERATIVE DIAGNOSIS: Normal colon. PROCEDURE: Colonoscopy. SURGEON: Dk Seaman DO ANESTHESIA: Per ICE CREAM DISPENSER. ESTIMATED BLOOD LOSS: None. SPECIMENS: None. INDICATIONS: The patient is a 78-year-old male for screening colonoscopy. He had attempted colonoscopy yesterday, but had poor prep so the patient was reprepped and brought in today for colonoscopy. He understands risks and benefits of procedure and wished to proceed with procedure. Consent was signed in the chart. PROCEDURE: The patient was taken to the endoscopy suite, placed in left lateral recumbent position. Timeout was performed. Digital rectal exam was performed. There were no palpable polyps, mass or ulcerations. The scope was inserted in the rectum and advanced all the way to the cecum with minimal difficulty. Prep was adequate with lots of irrigation and suction. There are no polyps, mass or ulceration of the cecum, ascending, transverse, descending and sigmoid colon. Once in the rectum, scope was retroflexed noting no other pathology. Scope was returned to its normal position, slowly withdrawn until completely removed. The patient tolerated procedure well without any complications. He was taken to the recovery room in stable condition. RECOMMENDATIONS: The patient at age 78 likely does not need any further colonoscopies for screening purposes. If he has any problems, he should be reevaluated at that time and risks and benefits determined. The patient to follow up on an as needed basis with myself. Job ID: [id number] DocumentID: [id number] Dictated Date: 04/25/2018 16:55:08 Cook Fast Food Date: 04/25/2018 22:27:13 Dictated By: DK SEAMAN DO MTDD
== END 2018-04-25 09:55 | disposition home or self-care (01) ==
LOC: SDC 07:02
PROVIDERS: ATTEND Surgery
DX: Z12.11 Encounter for screening for malignant neoplasm of colon (principal); Z79.02 Long term (current) use of antithrombotics/antiplatelets; E78.2 Mixed hyperlipidemia; E11.9 Type 2 diabetes mellitus without complications; G47.33 Obstructive sleep apnea (adult) (pediatric); E03.9 Hypothyroidism, unspecified; I10 Essential (primary) hypertension; N40.0 Benign prostatic hyperplasia without lower urinary tract symptoms

== ENCOUNTER → 2019-07-19 | Outpatient (CLI) | payer MEDICARE, OTHER ==
[~2019-07-19] MED LIST changes: -AMLO10TA6 PO; +AMLO10TA7 PO; -AMLO5TAB7 PO; +AMLO5TAB9 PO; +LOSA100T57 PO; -LOSA100T8 PO; -TAMS0.4C98 PO; +TMSL.4C PO
== END ==
LOC: CARD 10:00
PROVIDERS: ATTEND Physician Assistant
DX: I10 Essential (primary) hypertension (principal); E78.2 Mixed hyperlipidemia; E11.9 Type 2 diabetes mellitus without complications; I48.0 Paroxysmal atrial fibrillation; I08.0 Rheumatic disorders of both mitral and aortic valves
CPT/HCPCS: 93306

== ENCOUNTER → 2019-07-24 | Outpatient (CLI) | payer MEDICARE, OTHER ==
[~2019-07-24] VITALS: Ht 175 cm; Wt 88.0 kg
[~2019-07-24] MED LIST changes: +CATHETER FLUSH 10 ML SYR IV PRN; +REGADENOSON 0.4 MG/5 ML SYR (LEXISCAN) IV ONE; +TAMS0.4C98 PO; -TMSL.4C PO
--- NOTE | 2019-07-24 23:43 | STRESS TEST ---
DATE OF SERVICE: 07/24/2019 LEXISCAN MYOVIEW STRESS TEST REFERRING PHYSICIAN: Dr. Ortiz. Baseline heart rate is 60. Baseline blood pressure 174/87. Baseline EKG is sinus rhythm with no ischemic changes. In summary, the patient was injected with 10.03 mCi of technetium-99 Myoview and the resting images were obtained. Then, the patient received 0.4 mg of Lexiscan followed by 28.3 mCi of technetium-99 Myoview. Throughout the test, there were no EKG changes. The resting and stress images were reviewed and compared in the short axis, horizontal long axis, and vertical long axis views. Review of the images showed good radiotracer uptake with no significant ischemia or infarction. SSS is 0. TID value 1.03. On the gated images, the left ventricle appeared to be in normal size with normal contractility. Calculated ejection fraction 55%. CONCLUSION: 1. The patient tolerated Lexiscan well. 2. No ischemia or infarction on SPECT images. 3. Normal left ventricular size with normal contractility. Calculated ejection fraction 55%. Job ID: [id number] DocumentID: [id number] Dictated Date: 07/24/2019 17:16:32 Airplane Dispatcher Date: 07/24/2019 23:43:18 Dictated By: IRIS ALFRED MD
== END ==
LOC: CARD 11:22
PROVIDERS: ATTEND Physician Assistant
DX: I10 Essential (primary) hypertension (principal); E78.2 Mixed hyperlipidemia; E11.9 Type 2 diabetes mellitus without complications; I48.0 Paroxysmal atrial fibrillation; R00.2 Palpitations
CPT/HCPCS: 78452; 93017

== ENCOUNTER → 2020-11-25 | Outpatient (CLI) | payer MEDICARE, OTHER ==
[~2020-11-25] VITALS: Ht 175 cm; Wt 87.0 kg
[~2020-11-25] MED LIST changes: +AMLO-250 PO; +AMLO-251 PO; -AMLO10TA7 PO; -AMLO5TAB9 PO; +ASPI-1238 PO; -ASPI-983 PO; -ENAL20TA PO; +ENAL20TA16 PO; -HYDR-3876 PO; +HYDR-3920 PO; +ONDA-105 PO; -ONDA4TAB10 PO; -TAMS0.4C98 PO; +TMSL.4C PO
[2020-11-25 09:43] VITALS: BP 173/73
[2020-11-25 09:46] VITALS: BP 166/65
--- NOTE | 2020-11-25 14:24 | Cardiology Stress Test Report ---
Stress Test Report Date of Procedure/Referring: Date of Procedure: Nov 25, 2020 PCP Javi More MD Admitting Physician Talat Ortiz MD Indications: HTN Baseline Heart Rate: 50 Baseline Blood Pressure: Blood Pressure Systolic: 166 Blood Pressure Diastolic: 65 Baseline Vitals Vital Signs Date Time Temp Pulse Resp B/P (MAP) Pulse Ox O2 Delivery O2 Flow Rate FiO2 11/25/20 09:43 69 20 173/73 (106) 97 Room Air Baseline EKG: Baseline EKG: Sinus rhythm, atrial bigeminy Summary After explaining the procedure to the patient, he signed a consent and then brought to the stress nuclear laboratory. Patient received 0.4 mg Lexiscan for stress test, ECG, heart rate and blood pressure were monitored continuously. Resting and stress dose of radio tracer were injected, imaging was acquired and reviewed in short axis, horizontal long axis and vertical long axis views. TID: 0.99 SSS: 0 SDS: 0 EF: 57 1. Patient tolerated Lexiscan well 2. Baseline sinus bradycardia with atrial bigeminy, frequent atrial premature contraction persisted during test 3. Diaphragmatic attenuation with no significant ischemia or infarction on SPECT images 4. Normal left ventricular size, ejection fraction 57% IRIS ALFRED MD Nov 25, 2020 14:24
== END ==
LOC: CARD 07:57
PROVIDERS: ATTEND Internal Medicine Cardiovascular Disease
DX: I48.0 Paroxysmal atrial fibrillation (principal); I10 Essential (primary) hypertension
CPT/HCPCS: 78452; 93017; A9502

== ENCOUNTER → 2021-05-10 | Outpatient (CLI) | payer MEDICARE, OTHER ==
[~2021-05-10] MED LIST changes: -CATHETER FLUSH 10 ML SYR IV PRN; -REGADENOSON 0.4 MG/5 ML SYR (LEXISCAN) IV ONE
== END ==
LOC: CARD 14:30
PROVIDERS: ATTEND Physician Assistant
DX: I35.1 Nonrheumatic aortic (valve) insufficiency (principal); I11.9 Hypertensive heart disease without heart failure; I25.10 Atherosclerotic heart disease of native coronary artery without angina pectoris
CPT/HCPCS: 93306

== ENCOUNTER → 2023-02-01 | Outpatient (CLI) | payer MEDICARE, OTHER ==
[~2023-02-01] MED LIST changes: +CATHETER FLUSH 10 ML SYR IVP PRN; +ENAL-70 PO; -ENAL20TA16 PO; -LOSA100T57 PO; +LOSA100T58 PO; +REGADENOSON 0.4 MG/5 ML SYR (LEXISCAN) IV ONE
[2023-02-01 13:02] VITALS: BP 141/84
--- NOTE | 2023-02-01 15:58 | Cardiology Stress Test Report ---
Stress Test Report Date of Procedure/Referring: Date of Procedure: Feb 01, 2023 PCP Александр Reinoso MD Admitting Physician Admitting Physician: Attending Physician: Cam Andino MD Indications: CP Baseline Heart Rate: 55 Baseline Blood Pressure: Blood Pressure Systolic: 141 Blood Pressure Diastolic: 84 Baseline Vitals Vital Signs Date Time Temp Pulse Resp B/P (MAP) Pulse Ox O2 Delivery O2 Flow Rate FiO2 02/01/23 13:02 55 141/84 (103) 99 Baseline EKG: Baseline EKG: NSR Summary After explaining the procedure to the patient, he signed a consent and then brought to the stress nuclear laboratory. Patient received 0.4 mg Lexiscan for stress test, ECG, heart rate and blood pressure were monitored continuously. Resting and stress dose of radio tracer were injected, imaging was acquired and reviewed in short axis, horizontal long axis and vertical long axis views. TID: 1.14 SSS: 1 SDS: 1 EF: 71 Patient tolerated Lexiscan well Frequent atrial premature contractions persisted during test No significant ischemia or infarction noted on SPECT images Normal left ventricular size, ejection fraction 71% Copy Copies To 1: АЛЕКСАНДР REINOSO MD, BASHAR J MD Feb 01, 2023 15:58
== END ==
LOC: CARD 11:06
PROVIDERS: ATTEND Internal Medicine Cardiovascular Disease
DX: I25.10 Atherosclerotic heart disease of native coronary artery without angina pectoris (principal); I10 Essential (primary) hypertension
CPT/HCPCS: 78452; 93017; A9502

== ENCOUNTER → 2023-02-07 | Outpatient (CLI) | payer MEDICARE, OTHER ==
[~2023-02-07] MED LIST changes: -CATHETER FLUSH 10 ML SYR IVP PRN; -REGADENOSON 0.4 MG/5 ML SYR (LEXISCAN) IV ONE
--- NOTE | 2023-02-07 16:53 | Diagnostic Imaging Report ---
INDICATION: Age-related screening for osteoporosis. COMPARISON: None FINDINGS: AP Spine L1-L4: [BMD (g/cm2): 1.668] [T-Score: 3.6] [Z-Score: 3.9] [BMD Previous: NA] [BMD % Change: NA] LT Hip Neck: [BMD (g/cm2): 0.852] [T-Score: -1.7] [Z-Score: -0.4] LT Hip Total: [BMD (g/cm2):1.003] [T-Score:-0.7] [Z-Score: 0.3] [BMD Previous: NA] [BMD % Change: NA] RT Hip Neck: [BMD (g/cm2):0.831] [T-Score:-1.8] [Z-Score:-0.5] RT Hip Total: [BMD (g/cm2):0.994] [T-score:-0.7] [Z-Score:0.2] [BMD Previous:NA] [BMD % Change:NA] *Indicates significant change from prior examination based on 95% confidence level. World Health Organization criteria for BMD interpretation classify patients as Normal (T-score at or above -1.0), Osteopenic (T-score between -1.0 and -2.5) or Osteoporotic (T-score at or below -2.5). LIMITATIONS AND MODIFICATION: None. FRACTURE RISK (FRAX SCORE): The ten year probability of (%): Major Osteoporotic Fracture: [17.9] Hip Fracture: [13.2] IMPRESSION: 1. Osteopenia (Low bone mass). 2. Baseline examination. 3. See below National Osteoporosis Foundation guidelines on when to potentially initiate pharmacologic therapy. Based on the National Osteoporosis Foundation Guidelines, pharmacologic treatment should be initiated in any of the following, unless clinical conditions suggest otherwise: * Any patient with prior fragility fracture of the hip or vertebrae. A spine fracture indicates 5X risk for subsequent spine fracture and 2X risk for subsequent hip fracture. * Osteoporosis (T-score <-2.5). * Postmenopausal women and men age 50 and older with low bone mass/osteopenia (T-score between -1.0 and -2.5) by DXA and 10-year major osteoporotic fracture greater than 20% or a 10-year probability of hip fracture greater than 3%. These fracture risks are supplied above in the FRAX score, if applicable. * Clinician judgement and/or patient preferences may indicate treatment for people with 10-year fracture probabilities above or below these levels. Dictated by: Dictated on workstation # [id number]
== END ==
LOC: RAD 11:56
PROVIDERS: ATTEND Internal Medicine Endocrinology, Diabetes & Metabolism
DX: M85.80 Other specified disorders of bone density and structure, unspecified site (principal); E10.9 Type 1 diabetes mellitus without complications; E03.8 Other specified hypothyroidism; E55.9 Vitamin D deficiency, unspecified; E29.1 Testicular hypofunction; Z87.19 Personal history of other diseases of the digestive system
CPT/HCPCS: 77080